=== PATIENT | female | born 1985 | race Caucasian/White ===

== ENCOUNTER 2018-06-10 13:28 | Emergency (ER) | payer SELFPAY ==
--- NOTE | 2018-06-10 14:14 | ED Physician Documentation ---
Fall - HPI Stated Complaint: Lt ankle pain Chief Complaint: Fall Additional Information: Patient presents to ED with complaints of left ankle/foot pain and swelling after slipping on the ice while getting out of her car [place] the [place] yesterday. She states she has been putting ice on the area with little improvement. Onset: yesterday Where: other (library) Context: slipped (on the ice) r: mild Associated Symptoms:: no loss of consciousness Location of Pain/Injury: lower extremity Injury to Right Extremity: none Injury to Left Extremity: ankle Further Comments: no - ROS CONST: denies: fever NEURO: denies: dizziness MS/SKIN/LYMPH: denies: numbness EYES/ENT: none CVS/RESP: denies: chest pain, shortness of breath GI/: denies: nausea, vomiting - PAST HX Past History: none Allergies/Adverse Reactions: Allergies Allergy/AdvReac Type Severity Reaction Status Date / Time codeine Allergy Verified 06/10/18 13:49 Home Medications: Ambulatory Orders Medication Instructions Recorded NK 06/10/18 - SOCIAL HX Smoking History: cigarettes, greater than 1 pack/day Alcohol Use: none Drug Use: none - FAMILY HX Family History: none - VITAL SIGNS Vital Signs: Vital Signs Temp Pulse Resp BP Pulse Ox 98.7 F 75 16 159/109 100 06/10/18 13:29 06/10/18 13:29 06/10/18 13:29 06/10/18 13:29 06/10/18 13:29 - REVIEWED ASSESSMENTS Nursing Assessment Reviewed: Yes Vitals Reviewed: Yes ED Results Lab/Radiology - Radiology Radiology Impressions: Left foot History: Fell on ice Three views of the left foot were obtained which demonstrate no evidence for acute fracture or dislocation. Mineralization and alignment is normal. Impression: No osseous abnormality. Electronically signed on Jun 10, 2018 2:17:47 PM LENS SHAPER GRINDER by: Reshma Hawkins Left ankle History: Fell on ice yesterday Three views of the left ankle were obtained which demonstrate the presence of a well-defined 6 mm sclerotic lesion medially of the distal tibia consistent either with a healed nonossifying fibroma or a bone island. The talar dome and ankle mortise are intact. There is no evidence for acute fracture or dislocation. Impression: No evidence for acute fracture or dislocation. 6 mm nonaggressive appearing sclerotic lesion of the distal tibia as described. Electronically signed on Jun 10, 2018 2:19:09 PM LENS SHAPER GRINDER by: Reshma Hawkins - Orders Orders: ED Orders Category Date Time Status ANKLE 3 VIEWS OR MORE [RAD] Stat Exams 06/10/18 Taken FOOT 3 VIEWS OR MORE [RAD] Stat Exams 06/10/18 Taken Fall Physical Exam - Physical Exam General Appearance: no acute distress, alert Head: non-tender, no obvious injury Neck: non-tender Eye: JACKIE ENT: nml external inspection Resp/CVS: chest non-tender, breath sounds nml, no resp. distress Abdomen: soft, normal bowel sounds Neuro: oriented x3, motor nml Skin: color nml Back: normal inspection, no CVA tenderness Extremities: atraumatic, other (left lateral malleoli tenderness and swelling. ) Joint: joints nml, nml ROM, Nml gait/weight bearing - Dragan Coma Score Eyes Open: Spontaneous Speech: Oriented Motor: Obeys Commands Discharge Clincal Impression: Left ankle strain Qualifiers: Encounter type: initial encounter Qualified Code(s): S96.912A - Strain of unspecified muscle and tendon at ankle and foot level, left foot, initial encounter Additional Instructions: 1. Keep foot elevated when resting 2. Apply ice to affected area 3. Tylenol and/or ibuprofen as needed for pain. 4. Follow up with PCP within 1 week. Condition: Stable Disposition: 01 HOME, SELF-CARE Decision to Admit: NO Date of Decison to Admit: 06/10/18 Decision Time: 14:22
--- NOTE | 2018-06-10 14:21 | Diagnostic Imaging Report ---
HIRAM GARDINER [facility] [address] [facility] [address] [address] Report Submission Date: Jun 10, 2018 2:19:09 PM EARLY CHILDHOOD TEACHER Patient Study Name: DEB MALLOY Date: Jun 10, 2018 1:54:09 PM EARLY CHILDHOOD TEACHER Modality Type: DX Gender: F Description: LOWER EXTREMITY : 83 Institution: [facility] Physician: HIRAM GARDINER Left ankle History: Fell on ice yesterday Three views of the left ankle were obtained which demonstrate the presence of a well-defined 6 mm sclerotic lesion medially of the distal tibia consistent either with a healed nonossifying fibroma or a bone island. The talar dome and ankle mortise are intact. There is no evidence for acute fracture or dislocation. Impression: No evidence for acute fracture or dislocation. 6 mm nonaggressive appearing sclerotic lesion of the distal tibia as described. Electronically signed on Jun 10, 2018 2:19:09 PM EARLY CHILDHOOD TEACHER by: Reshma NESS
--- NOTE | 2018-06-10 14:21 | Diagnostic Imaging Report ---
HIRAM GARDINER [facility] [address] [facility] [address] [address] Report Submission Date: Jun 10, 2018 2:17:47 PM MANGANESE HEATER Patient Study Name: DEB MALLOY Date: Jun 10, 2018 1:50:13 PM MANGANESE HEATER Modality Type: DX Gender: F Description: LOWER EXTREMITY : 83 Institution: [facility] Physician: HIRAM GARDINER Left foot History: Fell on ice Three views of the left foot were obtained which demonstrate no evidence for acute fracture or dislocation. Mineralization and alignment is normal. Impression: No osseous abnormality. Electronically signed on Jun 10, 2018 2:17:47 PM MANGANESE HEATER by: Reshma NESS
[2018-06-10 14:44] VITALS: BP 150/106
== END 2018-06-10 14:39 | disposition home or self-care (01) ==
LOC: ED 13:28
DX: S96.912A Strain of unspecified muscle and tendon at ankle and foot level, left foot, initial encounter (principal); R03.0 Elevated blood-pressure reading, without diagnosis of hypertension; W00.0XXA Fall on same level due to ice and snow, initial encounter; Y93.89 Activity, other specified; Y92.241 Library as the place of occurrence of the external cause
CPT/HCPCS: 29540; 73610; 73630; 99283

== ENCOUNTER 2018-10-06 01:26 | Emergency (ER) | payer OTHER ==
--- NOTE | 2018-10-06 01:34 | ED Physician Documentation ---
Chest Pain - HISTORIAN Historian: patient - HPI Stated Complaint: chest pain and cough x 1 week no fever Chief Complaint: Chest Pain Onset: days ago (7) Timing: sudden onset Duration: none Last known Well Date: 09/29/18 Last Known Well Time: 08:00 Context: other (any - increased with cough and touch ) Severity: mild Quality: pressure, aching Chest Pain Radiation: no radiation Chest Pain Signs/Symptoms: dyspnea. denies: nausea, vomiting, diaphoresis, cool extremities, dizziness, tachypnea, tachycardia, hypotension, palpitations, weakness Worsened By: deep breaths, other (cough ) Relieved By: nothing Further Comments: yes (she reports all winter she has had to walk and notes over the last week her cough has increased. Denies a fever. Last night around 10 pm the chest pain started. The pain is increased with cough. She has no fever. She does have asthma her last inhaler use was about one hour ago) - ROS CONST: none - PAST HX FL risk factors: other (asthma ) Immunizations: UTD Allergies/Adverse Reactions: Allergies Allergy/AdvReac Type Severity Reaction Status Date / Time codeine Allergy Verified 10/06/18 02:13 Home Medications: Ambulatory Orders Medication Instructions Recorded Albuterol Sulfate [Proair HFA] 2 puff IH PRN PRN 10/06/18 - SOCIAL HX Smoking History: cigarettes Alcohol Use: none Drug Use: none - FAMILY HX Family HX: none - VITAL SIGNS Vital Signs: Vital Signs Temp Pulse Resp BP Pulse Ox 150/106 06/10/18 14:39 - REVIEWED ASSESSMENTS Nursing Assessment Reviewed: Yes Vitals Reviewed: Yes Progress - Progress Progress: 0214: she states with neb she has less pain and easier to breathe. DG ED Results Lab/Radiology - Radiology Radiology Impressions: History: Chest pain x6 months Findings: The heart size is normal. The lungs are clear. There is no pleural effusion or pneumothorax identified. The osseous structures are normal. Impression: 1. No acute pulmonary disease. Electronically signed on Oct 06, 2018 1:59:01 AM CDT by: Geoff Lowry Chest Pain Physical Exam - EXAM General Appearance: no acute distress, alert EENT: eye inspection normal, no signs of dehydration Neck: nml inspection Respiratory: no resp. distress, wheezes, rhonchi, other (pain to palpation on mid sterum and right side of chest ) CVS: reg. rate & rhythm, no murmur Abdomen: soft, no distension Skin: warm/dry Extremities: non-tender, normal range of motion, no evidence of injury, no edema Neuro: oriented X3, CN's nml as tested Discharge Clincal Impression: Bronchitis Referrals: Primary Doctor,No [Primary Care Provider] - 2 Days Comments: 1. Azithromycin 250 mg take 1 by mouth daily x 4 2. Medrol dose pack - as directed start 10.07.2018 3. ProAir 90 mcg 2 puffs every 4 hours as needed for cough 4. Increase fluids 5. Follow up with PCP in 2-4 days 6. Return to ER for increasing concerns Condition: Stable Disposition: 01 HOME, SELF-CARE Decision to Admit: NO Date of Decison to Admit: 10/06/18 Decision Time: 02:50
--- NOTE | 2018-10-06 02:03 | Diagnostic Imaging Report ---
TUSHAR QUINTERO [facility] [address] [facility] [address] [place], [place]. [address] Report Submission Date: Oct 06, 2018 1:59:01 AM CDT Patient Study Name: DEB MALLOY Date: Oct 06, 2018 1:37:49 AM CDT Modality Type: DX Gender: F Description: CHEST 2VIEW : 83 Institution: [facility] Physician: TUSHAR QUINTERO Chest, 2 view History: Chest pain x6 months Findings: The heart size is normal. The lungs are clear. There is no pleural effusion or pneumothorax identified. The osseous structures are normal. Impression: 1. No acute pulmonary disease. Electronically signed on Oct 06, 2018 1:59:01 AM CDT by: Geoff NESS
[2018-10-06] MEDS: ASPIRIN 81 MG CHEW TAB PO ONE (02:09)
[2018-10-06] MEDS: IPRATROPIUM/ALBUTEROL SULFATE 3 ML AMPUL.NEB NEB ONE (02:10)
[2018-10-06] MEDS: KETOROLAC TROMETHAMINE 30 MG/1ML VIAL IV ONE (02:35)
[2018-10-06] MEDS: methylPREDNISolone SOD SUCC 125 MG/2 ML VIAL IVP ONE (02:40)
[2018-10-06] MEDS: AZITHROMYCIN 250 MG TABLET PO ONE (02:40)
[2018-10-06 03:03] VITALS: BP 137/92
[2018-10-06 06:12] LABS: MEAN CORPUSCULAR HEMOGLOBIN 30.2 pg (28.0-34.0)
[2018-10-06 06:12] LABS: eGFR (Non-African) > 60
[2018-10-06 06:14] LABS: MONOCYTES % 4.1 % (0.0-11.0); NEUTROPHILS # 8.3 # k/uL (1.4-7.7)
== END 2018-10-06 02:50 | disposition home or self-care (01) ==
LOC: ED 01:26
DX: J40 Bronchitis, not specified as acute or chronic (principal); Z72.0 Tobacco use
CPT/HCPCS: 36415; 71046; 80053; 84484; 85025; 94640; 96374; 96375; 99284; J1885; J2930; S1016

== ENCOUNTER 2018-10-10 13:19 | Emergency (ER) | payer OTHER ==
[2018-10-10] MEDS: LISINOPRIL 5 MG TABLET PO ONE (13:54)
[2018-10-10 14:16] LABS: eGFR (Non-African) > 60
[2018-10-10 14:17] LABS: BASOPHILS % 2.7 (0.0-1.5); EOSINOPHILS % 2.1 % (0.0-6.8); MEAN CORPUSCULAR HEMOGLOBIN 30.2 pg (28.0-34.0); MONOCYTES % 5.1 % (0.0-11.0); NEUTROPHILS # 6.2 # k/uL (1.4-7.7)
--- NOTE | 2018-10-10 14:18 | ED Physician Documentation ---
Dizziness - HISTORIAN Historian: patient - HPI Stated Complaint: Dizziness Chief Complaint: Dizziness Additional Information: Patient presents to ED with a 4 month history of dizziness, intermittent chest pain, blurry vision and tingling in her hands. She states in June she fell on the ice and twisted her ankle. She was seen in the ED at that time and it was noted she had high blood pressure. She was also seen on 10/06/18 for similar symptoms including a cough. Her blood pressure was high then too. She has nearly finished her Medrol dose pack and Azithromycin for her bronchitis but is still having same symptoms (cough is better). Presenting blood pressure here is 188/113 Timing: still present Duration: intermittent episodes Last known Well Date: 06/14/18 Last Known Well Time: 08:00 Severity: moderate Associated Symptoms: headache. denies: nausea, vomiting Worsened By: nothing Further Comments: no - ROS CONST: denies: fever EYES/ENT: problems with vision GI/: none MS/SKIN/LYMPH: none NEURO/PSYCH: tingling hands CVS/RESP: chest pain, shortness of breath - PAST HX Past History: hypertension Cardiac Disease: none Surgeries/Procedures: none Allergies/Adverse Reactions: Allergies Allergy/AdvReac Type Severity Reaction Status Date / Time codeine Allergy Verified 10/10/18 14:26 Home Medications: Ambulatory Orders Medication Instructions Recorded NK 10/10/18 - SOCIAL HX Smoking History: cigarettes, greater than 1 pack/day Alcohol Use: heavy Drug Use: marijuana - FAMILY HX Family History: none - VITAL SIGNS Vital Signs: Vital Signs Temp Pulse Resp BP Pulse Ox 97.4 F L 92 H 16 188/113 99 10/10/18 13:20 10/10/18 13:20 10/10/18 13:20 10/10/18 13:20 10/10/18 13:20 - REVIEWED ASSESSMENTS Nursing Assessment Reviewed: Yes Vitals Reviewed: Yes Progress - EKG/XRAY/CT EKG: NSR Comments: 75 bpm ED Results Lab/Radiology - Orders Orders: ED Orders Category Date Time Status CBC/PLATELET/DIFF Routine Lab 10/10/18 13:47 Received CMP Routine Lab 10/10/18 13:47 Received TROPONIN I (cTnI) Stat Lab 10/10/18 13:47 Received Lisinopril [Prinivil] Med 10/10/18 13:38 Discontinued 20 mg PO NOW ONE EKG WITH COMPARISON Stat Ther 10/10/18 Ordered Dizziness Physical Exam - Physical Exam General Appearance: no distress EENT: JACKIE Neck: supple. No: lymphadenopathy Respiratory: no respiratory distress, wheezes (bilaterally/ cleared with cough) CVS: reg rate & rhythm, heart sounds normal Abdomen: soft Skin: warm/dry Neuro: nml orientation, mood/affect nml Extremities: non-tender, no edema Cranial: no evidence of acute CVA. No: facial droop Cerebellar: nml as tested Sensorimotor: motor nml. No: weakness Discharge Clincal Impression: COPD with acute exacerbation, Accelerated essential hypertension Referrals: Primary Doctor,No [Primary Care Provider] - 2 Days Additional Instructions: 1. Stop smoking 2. Take Lisinopril daily 3. Albuterol as needed for cough and chest tightness 4. Follow up with PCP within 3 days. 5. Return to ER for new or worsening symptoms Condition: Stable Disposition: 01 HOME, SELF-CARE Decision to Admit: NO Date of Decison to Admit: 10/10/18 Decision Time: 14:44
[2018-10-10] MEDS: IPRATROPIUM/ALBUTEROL SULFATE 3 ML AMPUL.NEB NEB ONE (14:42)
[2018-10-10] MEDS: KETOROLAC TROMETHAMINE 30 MG/1ML VIAL IV ONE (15:00)
[2018-10-10] MEDS: methylPREDNISolone SOD SUCC 125 MG/2 ML VIAL IVP ONE (15:00)
[2018-10-10 15:29] VITALS: BP 139/93
== END 2018-10-10 15:27 | disposition home or self-care (01) ==
LOC: ED 13:19
DX: J44.1 Chronic obstructive pulmonary disease with (acute) exacerbation (principal); I10 Essential (primary) hypertension; Z72.0 Tobacco use
CPT/HCPCS: 36415; 80053; 84484; 85025; 93005; 94640; 96374; 96375; 99283; 99284; J1885; J2930; S1016

== ENCOUNTER 2018-10-13 13:50 | Emergency (ER) | payer OTHER ==
[2018-10-13] MEDS: IPRATROPIUM/ALBUTEROL SULFATE 3 ML AMPUL.NEB NEB ONE ×2 (14:15→14:20)
--- NOTE | 2018-10-13 14:24 | ED Physician Documentation ---
General Adult - HISTORIAN Historian: patient - HPI Chief Complaint: General Adult Additional Information: Patient is a 33-year-old female who presents to the ER with c/o achy all over, sore throat, back pain, arm pain with tingling, headache, shortness of breath. She has been seen on a couple of occasions recently in the ER. On 10/06/18 patient was seen in the ER with chest pain and cardiac work up was completed and negative- she was treated for bronchitis with Z-maikol, Medrol dose maikol, and ProAir inhaler. She was seen again on 10/10/18 for dizziness, intermittent chest pain, blurred vision, and tingling in her hands. She was instructed to take Lis inopril daily and use inhaler. Patient has not yet followed up with a primary care provider yet. She admits to tobacco use <1 ppd, daily alcohol use (normally [employer]), and marijuana use. Onset: days ago (has been seen in the ER prior to today) Timing: still present Severity: moderate Modifying Factors: smokes tobacco, alcohol use, drug use Further Comments: no - ROS CONST: fever, recent illness (seen in the ER recently x 2), weakness EYES/ENT: sore throat CVS/RESP: shortness of breath, cough GI/: none MS/SKIN/LYMPH: none NEURO/PSYCH: headache, tingling (to hands) - PAST HX Past History: asthma, hypertension Other History: none Surgeries/Procedures: other (wrist) Immunizations: UTD Allergies/Adverse Reactions: Allergies Allergy/AdvReac Type Severity Reaction Status Date / Time codeine Allergy Verified 10/13/18 14:16 Home Medications: Ambulatory Orders Medication Instructions Recorded Lisinopril 20 mg PO DAILY #30 tablet 10/10/18 Varenicline Tartrate [Chantix] 1 each PO DAILY #1 tab.ds.pk 10/13/18 - SOCIAL HX Smoking History: cigarettes, less than 1 pack/day Alcohol Use: heavy (daily) Drug Use: marijuana - FAMILY HX Family History: Yes - VITAL SIGNS Vital Signs: Vital Signs Temp Pulse Resp BP Pulse Ox 139/93 10/10/18 15:27 Progress - Progress Progress: Patient feels much better after IV fluids ED Results Lab/Radiology - Radiology Radiology Impressions: Examination: CT chest History: SHORT OF BREATH, RONCHI THROUGHOUT Comparison exams: Plain film dated 06 October 2018 Technique: CT chest without contrast protocol Findings: Lung pleura, parenchyma and pulmonary vascularity are without irregularity. No evidence for suspicious nodule or spiculated lesion. Anterior mediastinum and delisa are without gross mass or pathologic adenopathy: though sensitivity is reduced on a noncontrast exam. Cardiac silhouette not enlarged Lower neck structures, upper abdominal organs, and osseous structures are without gross abnormality. Impression: No acute parenchymal process. Electronically signed on Oct 13, 2018 3:45:50 PM CDT by: Cesar Thomas General Adult Physical Exam - PHYSICAL EXAM GENERAL APPEARANCE: mild distress EENT: eye inspection normal, ENT inspection normal, JACKIE, other (redness/erythema to throat) NECK: normal inspection, supple RESPIRATORY: wheezes, rhonchi CVS: heart sounds normal, equal pulses ABDOMEN: soft, normal bowel sounds SKIN: warm/dry, pallor EXTREMITIES: normal range of motion, no edema NEURO: oriented X3, CN's nml as tested, motor nml, sensation nml, cognition normal Discharge Clincal Impression: Dehydration Prescriptions: Varenicline Tartrate [Chantix] 1 each PO DAILY #1 tab.ds.pk Referrals: Primary Doctor,No [Primary Care Provider] - 2 Days Additional Instructions: Increase fluid intake (no caffeine) Stop Smoking- take Chantix as directed Stop Alcohol use Follow up with PCP next week Condition: Good Disposition: 01 HOME, SELF-CARE Decision to Admit: NO Decision Time: 16:30
[2018-10-13 14:41] LABS: BASOPHILS % 2.6 (0.0-1.5); EOSINOPHILS % 3.2 % (0.0-6.8)
[2018-10-13 14:50] LABS: eGFR (Non-African) > 60
[2018-10-13] MEDS: 0.9 % SODIUM CHLORIDE 1,000 ML IV ONE (15:01)
--- NOTE | 2018-10-13 15:58 | Diagnostic Imaging Report ---
JONATAN KRAMER [facility] [address] [facility] [address] [place], [place]. [address] Report Submission Date: Oct 13, 2018 3:45:50 PM CDT Patient Study Name: DEB MALLOY Date: Oct 13, 2018 3:18:08 PM CDT Modality Type: CT\SR Gender: F Description: CT CHEST W/O CONTRAST : 83 Institution: [facility] Physician: JONATAN KRAMER Examination: CT chest History: SHORT OF BREATH, RONCHI THROUGHOUT Comparison exams: Plain film dated 06 October 2018 Technique: CT chest without contrast protocol Findings: Lung pleura, parenchyma and pulmonary vascularity are without irregularity. No evidence for suspicious nodule or spiculated lesion. Anterior mediastinum and delisa are without gross mass or pathologic adenopathy: though sensitivity is reduced on a noncontrast exam. Cardiac silhouette not enlarged Lower neck structures, upper abdominal organs, and osseous structures are without gross abnormality. Impression: No acute parenchymal process. Electronically signed on Oct 13, 2018 3:45:50 PM CDT by: Cesar NESS
[2018-10-13 16:30] VITALS: BP 127/76
[2018-10-13 17:24] LABS: APPEARANCE,URINE CLEAR (CLEAR); COLOR,URINE YELLOW (YELLOW); OCCULT BLOOD,URINE NEGATIVE (NEGATIVE); PH URINE 6.5 (5.0 - 8.0); UROBILINOGEN URINE 0.2 Eu (0.2-1.0)
[2018-10-13 17:25] LABS: CANNABINOIDS NON NEGATIVE ng/mL (< 50); METHYLENEDIOXYMETHAMPHETAMINE NEGATIVE ng/mL (<500)
== END 2018-10-13 16:29 | disposition home or self-care (01) ==
LOC: ED 13:50
DX: E86.0 Dehydration (principal)
CPT/HCPCS: 36415; 71250; 80053; 80377; 81002; 85025; 87400; 94640; 94760; 96360; 99283; 99284; J7030; G0481; S1016

== ENCOUNTER 2018-10-31 23:35 | Emergency (ER) | payer OTHER ==
[2018-10-31 23:51] VITALS: BP 152/104
[2018-11-01] MEDS: diphenhydrAMINE HCL 25 MG TABLET PO ONE ×2 (00:09→00:10)
--- NOTE | 2018-11-01 00:09 | ED Physician Documentation ---
Skin Rash - HISTORIAN Historian: patient - HPI Stated Complaint: bilateral hand rash Chief Complaint: Skin Rash Onset: hours Timing: still present Where: work Further Comments: yes (33 year old female patient presents with rash on volar aspect of bilateral hands. Patient reports using a new pair of gloves at work tonight. Noticed rash an hour after wearing the gloves. C/O itching) - ROS CONST: none CVS/RESP: none EYES/ENT: none GI/: none MS/SKIN/LYMPH: rash NEURO/PSYCH: none - PAST HX Past History: none Other History: none Allergies/Adverse Reactions: Allergies Allergy/AdvReac Type Severity Reaction Status Date / Time codeine AdvReac Nausea/Vomi Verified 10/31/18 23:51 ting Home Medications: Ambulatory Orders Medication Instructions Recorded Lisinopril 20 mg PO DAILY #30 tablet 10/10/18 Varenicline Tartrate [Chantix] 1 each PO DAILY #1 tab.ds.pk 10/13/18 - SOCIAL HX Smoking History: cigarettes - FAMILY HX Family History: denies: none - VITAL SIGNS Vital Signs: Vital Signs Temp Pulse Resp BP Pulse Ox 97.9 F 90 20 152/104 98 11/01/18 00:14 11/01/18 00:14 11/01/18 00:14 11/01/18 00:14 11/01/18 00:14 - REVIEWED ASSESSMENTS Nursing Assessment Reviewed: Yes Vitals Reviewed: Yes Progress - Progress Progress: Medicated with Benadryl and claritin in ER. ED Results Lab/Radiology - Orders Orders: ED Orders Category Date Time Status Loratadine [Claritin] Med 11/01/18 00:09 Discontinued 10 mg PO NOW ONE diphenhydrAMINE HCL [Benadryl] Med 11/01/18 00:07 Discontinued 50 mg PO .STK-MED ONE diphenhydrAMINE HCL [Benadryl] Med 11/01/18 00:05 Discontinued 50 mg PO NOW ONE Skin Rash Physical Exam - EXAM General Appearance: mild distress Skin: warm,dry, skin rash (volar aspect of bilateral hands.) Location: other (volar aspect of bilateral hands.) Character: urticarial Symptoms: No: warmth, tenderness, swelling Extremities: non-tender, nml ROM, no edema EENT: eyes nml inspection Respiratory: no resp distress CVS: reg. rate & rhythm Neuro/Psych: oriented x3 Discharge Clincal Impression: Urticarial dermatitis Referrals: Primary Doctor,No [Primary Care Provider] - 2 Days Additional Instructions: Rash was likely caused by new gloves at work Use benadryl 25-50mg every 6 hours until rash resolves Use aquafor or lubriderm to moisturize Follow up with primary care if rash worsens. Condition: Stable Disposition: 01 HOME, SELF-CARE Decision to Admit: NO Decision Time: 00:08
[2018-11-01] MEDS: LORATADINE 10 MG TABLET PO ONE (00:13)
== END 2018-11-01 00:12 | disposition home or self-care (01) ==
LOC: ED 23:35
DX: L50.9 Urticaria, unspecified (principal)
CPT/HCPCS: 99282; Q0163

== ENCOUNTER 2018-12-21 19:37 | Emergency (ER) | payer OTHER ==
[2018-11-22 18:24] VITALS: BP 123/70
[2018-12-21] MEDS ORDERED: NORMAL SALINE 1,000 ML IV.SOLN IV ONE (19:54)
[2018-12-21] MEDS ORDERED: KETOROLAC TROMETHAMINE 30 MG/1ML VIAL ONE (19:54)
[2019-01-04 17:49] LABS: eGFR (Non-African) > 60
[2019-01-04 17:50] LABS: BASOPHILS % 0.5 % (0.0-1.5); NEUTROPHILS # 6.4 # k/uL (1.4-7.7)
[2019-01-04 17:53] LABS: APPEARANCE,URINE CLEAR (CLEAR); COLOR,URINE YELLOW (YELLOW); OCCULT BLOOD,URINE 3+ (NEGATIVE); UROBILINOGEN URINE 0.2 Eu (0.2-1.0)
--- NOTE | 2019-01-09 12:24 | Diagnostic Imaging Report ---
ALEJO MENARD (HIGHWAY INSPECTOR) - ER [facility] [address] [facility] [address] [place], [place]. [address] Report Submission Date: Dec 21, 2018 8:51:21 PM CDT Patient Study Name: DEB MALLOY Date: Dec 21, 2018 8:31:57 PM CDT Modality Type: CT\SR Gender: F Description: CT ABD/PEL W/O : 83 Institution: [facility] Physician: ALEJO MENARD (HIGHWAY INSPECTOR) - ER CT abdomen and pelvis without IV contrast Clinical history: Flank pain with hematuria Radiation dose DLP 798 No focal hepatic or splenic pathology. Normal pancreas and adrenal glands. No stones in the kidneys, no hydronephrosis. No visible perinephric edema. Normal appendix. No bowel obstruction. No free fluid or free air in the abdomen or pelvis. IUD is in place. Normal bladder. Degenerated disc L5/S1. Single gallstone. Impression: Cholelithiasis. IUD is in place. No stones in the kidneys ureters. No hydronephrosis. Degenerative disc at L5/S1. Electronically signed on Dec 21, 2018 8:51:21 PM CDT by: Stephen NESS
== END 2018-12-22 10:10 | disposition home or self-care (01) ==
LOC: ED 19:37
DX: N76.0 Acute vaginitis (principal); R30.0 Dysuria
CPT/HCPCS: 36415; 70450; 80053; 81002; 85025; 96374; 99283; 99284; J1885; J7030; S1016

== ENCOUNTER 2019-02-20 09:35 | Emergency (ER) | payer OTHER ==
[2019-02-20 09:45] VITALS: BP 143/103
[2019-02-20] MEDS ORDERED: CLINDAMYCIN HCL 150 MG CAPSULE PO ONE (09:58)
[2019-02-20] MEDS ORDERED: HYDROcodone /APAP 5/325 1 EACH TABLET PO ONE (09:58)
--- NOTE | 2019-02-20 10:13 | ED Physician Documentation ---
General Adult - HISTORIAN Historian: patient - HPI Stated Complaint: dental pain Chief Complaint: General Adult Onset: hours Timing: still present Severity: moderate Further Comments: yes (Pt is a 33 yo female with dental pain. Pain began about 3 am. Pt has been unable to sleep. Pt just got dental insurance and is planning f/u.) - ROS CONST: no problems EYES/ENT: other (dental pain) CVS/RESP: none GI/: none MS/SKIN/LYMPH: none - PAST HX Past History: hypertension, other (bipolar d/o) Allergies/Adverse Reactions: Allergies Allergy/AdvReac Type Severity Reaction Status Date / Time codeine AdvReac Nausea/Vomi Verified 02/20/19 09:45 ting Home Medications: Ambulatory Orders Medication Instructions Recorded Lisinopril 20 mg PO DAILY #30 tablet 10/10/18 Clonidine HCl [Catapres] 0.1 mg PO PM #30 tablet 11/06/18 Olanzapine [Zyprexa] 10 mg PO BID PRN #60 tablet 11/22/18 - SOCIAL HX Smoking History: cigarettes - FAMILY HX Family History: No - VITAL SIGNS Vital Signs: Vital Signs Temp Pulse Resp BP Pulse Ox 98.5 F 70 19 143/103 99 02/20/19 09:41 02/20/19 09:41 02/20/19 09:41 02/20/19 09:41 02/20/19 09:41 - REVIEWED ASSESSMENTS Nursing Assessment Reviewed: Yes Vitals Reviewed: Yes Progress - Progress Progress: Rx Clindamycin 300 mg. Take one every 6 hours for 10 days. 1st dose in ER. Rx [place] (5/325). Take one or two every 4 to 6 hours as needed for moderate to severe pain. #12 plus 2 in ER. ED Results Lab/Radiology - Orders Orders: ED Orders Category Date Time Status Clindamycin HCl [Cleocin] Med 02/20/19 09:58 Discontinued 300 mg PO NOW ONE HYDROcodone /APAP 5/325 [[place] 5/325] Med 02/20/19 09:58 Discontinued 2 each PO NOW ONE General Adult Physical Exam - PHYSICAL EXAM GENERAL APPEARANCE: moderate distress EENT: other (dental tenderness, swelling L lower jaw) NECK: normal inspection, supple RESPIRATORY: no resp distress, chest non-tender, breath sounds normal CVS: reg rate & rhythm, heart sounds normal BACK: normal inspection SKIN: warm/dry, normal color EXTREMITIES: non-tender, normal range of motion, no evidence of injury NEURO: oriented X3, motor nml, sensation nml Discharge Clincal Impression: Pain, dental Referrals: Trupti Hardy PRN [Primary Care Provider] - Condition: Stable Disposition: 01 HOME, SELF-CARE Decision to Admit: NO Decision Time: 10:13
== END 2019-02-20 10:21 | disposition home or self-care (01) ==
LOC: ED 09:35
DX: K08.89 Other specified disorders of teeth and supporting structures (principal)
CPT/HCPCS: 99282; A9270; A9270-GY

== ENCOUNTER 2019-03-17 02:27 | Emergency (ER) | payer SELFPAY ==
[2019-03-17] MEDS: hydrOXYzine HCL 25 MG TABLET PO ONE (02:48)
--- NOTE | 2019-03-17 02:51 | ED Physician Documentation ---
General Adult - HISTORIAN Historian: patient - HPI Stated Complaint: "I took my last anxiety meds today and it is just getting to me" Chief Complaint: General Adult (Anxiety) Additional Information: Patient is a 33 year old female who presents to the ER with c/o anxiety; she appears in no acute distress; calm and cooperative. Her PCP gave her enough Ativan to last 10 days; patient admits that she is an "addict". Discussed sta rting Hydroxyzine until she could follow up with PCP on 12/16/18. Onset: hours Timing: better Severity: mild - ROS CONST: no problems EYES/ENT: none CVS/RESP: none GI/: none MS/SKIN/LYMPH: none NEURO/PSYCH: denies: headache - PAST HX Past History: other (anxiety depression) Immunizations: UTD Allergies/Adverse Reactions: Allergies Allergy/AdvReac Type Severity Reaction Status Date / Time codeine AdvReac Nausea/Vomi Verified 03/17/19 03:22 ting Home Medications: Ambulatory Orders Medication Instructions Recorded Lorazepam [Ativan] 1 mg PO BID 03/17/19 Losartan Potassium [Cozaar] 50 mg PO DAILY 03/17/19 Venlafaxine HCl [Effexor Xr] 75 cap PO DAILY 03/17/19 - SOCIAL HX Smoking History: greater than 1 pack/day Alcohol Use: occasionally Drug Use: marijuana, methamphetamines - FAMILY HX Family History: No - VITAL SIGNS Vital Signs: Vital Signs Temp Pulse Resp BP Pulse Ox 97.2 F L 73 18 154/86 98 03/17/19 02:30 03/17/19 02:30 03/17/19 02:30 03/17/19 02:30 03/17/19 02:30 - REVIEWED ASSESSMENTS Nursing Assessment Reviewed: Yes Vitals Reviewed: Yes ED Results Lab/Radiology - Orders Orders: ED Orders Category Date Time Status hydrOXYzine HCL [Atarax] Med 03/17/19 02:47 Once 25 mg PO NOW ONE General Adult Physical Exam - PHYSICAL EXAM GENERAL APPEARANCE: no distress EENT: eye inspection normal, ENT inspection normal, pharynx normal, no signs of dehydration, JACKIE NECK: normal inspection, supple RESPIRATORY: breath sounds normal CVS: heart sounds normal, equal pulses ABDOMEN: normal bowel sounds BACK: normal inspection SKIN: warm/dry, normal color EXTREMITIES: normal range of motion NEURO: oriented X3, CN's nml as tested, motor nml, sensation nml, mood/affect nml, cognition normal Discharge Clincal Impression: Anxiety Referrals: Trupti Hardy PRN [Primary Care Provider] - 2 Days Additional Instructions: Take Hydroxyzine by mouth every 6 hours as needed Keep appointment with PCP on 03/18/19 Condition: Good Disposition: 01 HOME, SELF-CARE Decision to Admit: NO Decision Time: 06:46
[2019-03-17 03:11] VITALS: BP 158/86
== END 2019-03-17 03:05 | disposition home or self-care (01) ==
LOC: ED 02:27
DX: F41.9 Anxiety disorder, unspecified (principal)
CPT/HCPCS: 99283; 99284

== ENCOUNTER 2019-04-18 06:57 | Emergency (ER) | payer OTHER ==
[2019-04-18] MEDS ORDERED: methylPREDNISolone SOD SUCC 125 MG/2 ML VIAL ONE (07:37)
[2019-04-18] MEDS ORDERED: IPRATROPIUM/ALBUTEROL SULFATE 3 ML AMPUL.NEB NEB ONE (07:37)
--- NOTE | 2019-05-06 09:48 | Diagnostic Imaging Report ---
JONATAN KRAMER [facility] [address] [facility] [address]. [address] Report Submission Date: Apr 18, 2019 7:54:12 AM CDT Patient Study Name: DEB MALLOY Date: Apr 18, 2019 7:33:43 AM CDT Modality Type: DX Gender: F Description: CHEST 2VIEW : 83 Institution: [facility] Physician: JONATAN KRAMER Exam: Chest two views. History: Cough and congestion. The examination is compared to study dated October 06, 2018. Lung paris are well aerated without angel consolidation or effusion. Heart and mediastinal contour are normal. No bony abnormalities are seen. Impression: No angel consolidation or effusion. Electronically signed on Apr 18, 2019 7:54:12 AM CDT by: Octavio NESS
== END 2019-04-18 08:04 ==
LOC: ED 06:57
DX: J06.9 Acute upper respiratory infection, unspecified (principal)
CPT/HCPCS: 71046; 99283; J2930

== ENCOUNTER 2019-04-20 14:22 | Emergency (ER) | payer SELFPAY ==
[2019-04-20] MEDS ORDERED: NORMAL SALINE 1,000 ML IV.SOLN IV ONE (15:15)
[2019-04-20] MEDS ORDERED: methylPREDNISolone SOD SUCC 125 MG/2 ML VIAL ONE (15:15)
[2019-04-20] MEDS ORDERED: IPRATROPIUM/ALBUTEROL SULFATE 3 ML AMPUL.NEB NEB ONE (15:15)
[2019-04-30 12:17] LABS: BASOPHILS % 0.6 % (0.0-1.5); NEUTROPHILS # 8.3 # k/uL (1.4-7.7)
[2019-04-30 12:18] LABS: eGFR (Non-African) > 60
--- NOTE | 2019-05-12 13:51 | Diagnostic Imaging Report ---
PANTERA GREEN [facility] [address] [facility] [address] [place], [place]. [address] Report Submission Date: Apr 20, 2019 3:58:38 PM CDT Patient Study Name: DEB MALLOY Date: Apr 20, 2019 3:41:58 PM CDT Modality Type: DX Gender: F Description: CHEST 2VIEW : 83 Institution: [facility] Physician: PANTERA GREEN Exam: Chest two views. History: Worsening cough and congestion. The examination is compared to a study dated April 18, 2019. Lung paris are well aerated. Right lower lobe infiltrate is noted. No consolidation or effusion is seen. Heart and mediastinal contour are normal. Impression: Right lower lobe infiltrate. Electronically signed on Apr 20, 2019 3:58:38 PM CDT by: Octavio NESS
== END 2019-04-20 17:12 ==
LOC: ED 14:22
DX: J18.1 Lobar pneumonia, unspecified organism (principal)
CPT/HCPCS: 71020; 80053; 85025; 85379; 87040; 99283; J2930; J7030; 71046; S1016

== ENCOUNTER 2019-04-24 15:12 | Emergency (ER) | payer SELFPAY | END 2019-04-24 16:28 | disposition home or self-care (01) | LOC: ED 15:12 | DX: F41.9 Anxiety disorder, unspecified (principal); I10 Essential (primary) hypertension | CPT/HCPCS: 99283 ==

== ENCOUNTER 2019-04-29 01:04 | Emergency (ER) | payer SELFPAY ==
[2019-04-29] MEDS ORDERED: AMOXICILLIN/POT 875/125 1 EACH PO ONE (01:16)
[2019-04-29] MEDS ORDERED: traMADol HCL 50 MG TABLET PO ONE (01:16)
--- NOTE | 2019-04-29 01:16 | ED Physician Documentation ---
Sore Throat/Dental Pain - HISTORIAN Historian: patient - HPI Stated Complaint: left lower tooth pain Chief Complaint: Dental Pain Additional Information: Patient present to ED with left lower tooth pain x 2 days. Onset: days ago (2) Context: Dental Caries Associated Symptoms: denies: fever, chills, sore throat Worsened By: cold - ROS CONST: no problems CVS/RESP: none GI/: denies: nausea, vomiting MS/SKIN/LYMPH: denies: muscle aches NEURO/PSYCH: denies: headache - PAST HX Past History: none Other History: none Allergies/Adverse Reactions: Allergies Allergy/AdvReac Type Severity Reaction Status Date / Time codeine AdvReac Unknown Nausea/Vomi Verified 04/29/19 01:21 ting prednisone AdvReac Unknown anxiety Verified 04/29/19 01:21 Home Medications: Ambulatory Orders Medication Instructions Recorded Atenolol [Tenormin] 1 tab PO DAILY 04/29/19 Olanzapine [Zyprexa] 1 tab PO DAILY 04/29/19 Penicillin V Potassium [Pen V K] 500 mg PO TID #30 tablet 04/29/19 Tramadol HCl [Ultram] 50 mg PO Q8 #15 tablet 04/29/19 - SOCIAL HX Smoking History: cigarettes, greater than 1 pack/day Alcohol Use: heavy Drug Use: marijuana - FAMILY HX Family History: No - VITAL SIGNS Vital Signs: Vital Signs Temp Pulse Resp BP Pulse Ox 158/86 03/17/19 03:00 - REVIEWED ASSESSMENTS Nursing Assessment Reviewed: Yes Vitals Reviewed: Yes Dental Pain Physical Exam - EXAM General Appearance: no acute distress, alert Eyes: PERRL Mouth/Throat: gums nml, other (left bottom molar with fracture) Respiratory: no resp. distress, breath sounds nml CVS: reg. rate & rhythm Abdomen: soft, normal bowel sounds Extremities: non-tender Skin: warm/dry Neuro/Psych: none Discharge Clincal Impression: Pain, dental Prescriptions: Penicillin V Potassium [Pen V K] 500 mg PO TID #30 tablet Tramadol HCl [Ultram] 50 mg PO Q8 #15 tablet Referrals: Trupti Hardy PRN [Primary Care Provider] - 2 Days Additional Instructions: 1. Take antibiotics until gone 2. Tylenol 650mg every 4 hours and/or Ibuprofen 600mg every 6 hours for pain 3. Tramadol every 8 hours as needed for break through pain 4. Salt and baking soda mouth rinses after every meal/snack. 1 tsp salt, 1 tsp baking soda in 4 ounces warm water. 5. Follow up with Dentist as already scheduled 6. Return to ER for new or worsen symptoms Disposition: 01 HOME, SELF-CARE Decision to Admit: NO Date of Decison to Admit: 04/29/19 Decision Time: 01:26
[2019-04-29 01:38] VITALS: BP 152/104
== END 2019-04-29 01:35 | disposition home or self-care (01) ==
LOC: ED 01:04
DX: K02.9 Dental caries, unspecified (principal)
CPT/HCPCS: 99283; 99284

== ENCOUNTER 2019-07-12 14:12 | Emergency (ER) | payer SELFPAY ==
--- NOTE | 2019-07-12 14:36 | ED Physician Documentation ---
General Adult - HISTORIAN Historian: patient - HPI Chief Complaint: General Adult Additional Information: 33 year old female presents with c/o anxiety that started before Jaiden; she states that she has been out of her Lisinopril and Ativan for several weeks; she states that she cannot afford to pay for office visit; she states that she has to wait for her taxes; discussed refilling her lisinopril and starting hydroxyzine for anxiety; discussed that these were chronic issues and it is extremely important to see PCP. She continues to smoke 2 packs per day. Onset: days ago Timing: still present Severity: mild Modifying Factors: Not taking meds - ROS CONST: no problems EYES/ENT: none CVS/RESP: none GI/: none MS/SKIN/LYMPH: none NEURO/PSYCH: denies: headache - PAST HX Past History: COPD, hypertension, other (anxiety) Other History: none Immunizations: UTD Allergies/Adverse Reactions: Allergies Allergy/AdvReac Type Severity Reaction Status Date / Time codeine AdvReac Unknown Nausea/Vomi Verified 07/12/19 14:28 ting prednisone AdvReac Unknown anxiety Verified 07/12/19 14:28 Home Medications: Ambulatory Orders Medication Instructions Recorded Hydroxyzine Pamoate [Vistaril] 25 mg PO Q6H PRN #15 capsule 07/12/19 Lisinopril [Prinivil] 10 mg PO DAILY #30 tablet 07/12/19 - SOCIAL HX Smoking History: greater than 1 pack/day Alcohol Use: none Drug Use: none - FAMILY HX Family History: No - VITAL SIGNS Vital Signs: Vital Signs Temp Pulse Resp BP Pulse Ox 152/104 04/29/19 01:37 - REVIEWED ASSESSMENTS Nursing Assessment Reviewed: Yes Vitals Reviewed: Yes General Adult Physical Exam - PHYSICAL EXAM GENERAL APPEARANCE: no distress EENT: eye inspection normal, ENT inspection normal, pharynx normal, no signs of dehydration, JACKIE, TM's nml NECK: normal inspection, supple RESPIRATORY: rhonchi (chronic smoker) CVS: heart sounds normal, equal pulses ABDOMEN: normal bowel sounds SKIN: warm/dry, normal color EXTREMITIES: non-tender, normal range of motion NEURO: oriented X3, motor nml, sensation nml, mood/affect nml, cognition normal Discharge Clincal Impression: Hypertension, Anxiety Prescriptions: Hydroxyzine Pamoate [Vistaril] 25 mg PO Q6H PRN #15 capsule PRN Reason: Anxiety Lisinopril [Prinivil] 10 mg PO DAILY #30 tablet Referrals: Trupti Hardy, PRN [Primary Care Provider] - 2 Days Additional Instructions: MUST FOLLOW UP WITH PCP GABY Will send Lisinopril 10 mg by mouth daily to pharmacy Will send Hydroxyzine 25mg by mouth every 6 hours as needed for anxiety STOP SMOKING Low sodium; low carb diet; increase protein These are chronic conditions and it is important to see your PCP for continuation of care Condition: Good Disposition: 01 HOME, SELF-CARE Decision to Admit: NO Decision Time: 14:40
[2019-07-12 14:43] VITALS: BP 133/90
== END 2019-07-12 14:41 | disposition home or self-care (01) ==
LOC: ED 14:12
DX: I10 Essential (primary) hypertension (principal); F17.210 Nicotine dependence, cigarettes, uncomplicated; F41.9 Anxiety disorder, unspecified
CPT/HCPCS: 99282; 99284